=== PATIENT | male | born 1955 | race Caucasian/White ===

== ENCOUNTER 2020-06-29 02:25 | Emergency (ER) | payer OTHER ==
[~2020-06-29] VITALS: Ht 180.3 cm; Wt 108.9 kg
[~2020-06-29 02:25] MED LIST: ASA81BEC PO; ATIVAN1 MG PO; BACLOFEN20 MG PO; CARVEDILOL12.5 MG PO; CLONAZEPAM 0.50.5 M1 PO; CLONIDINE0.1 PO; CYMBALTA60 MG PO; DEPAKOTE500 MG; ENDOCET 10-3251 EACH PO; HALDOL 0.5 MG0.5 MG PO; IMDUR 30 MG TAB30 M1; IRON325; KEPPRA1000 MG; LASIX 40 MG TAB40 M2; LISINOPRIL10 MG PO; LISINOPRIL40 MG; LOPRESSOR100 MG PO; METALAZONE; MOTION RELIEF25 MG PO; MULTIVITAMINS1 EAC7; NABUMETONE 500500 M1; NICORETTE2 MG BC; NITROGLYCERIN0.4 MG; PHENERGAN 25 MG25 M1; PLAVIX 75 MG TA75 M1; PRAVACHOL40 MG PO; PROTONIX40 M2; SERTRALINE HCL50 MG PO; TAMSULOSIN HCL0.4 M1; TRAMADOL 50 MG50 MG PO; TRAZODONE 150150 M1 PO; ULTRAM50 MG; VALIUM2 MG PO; VITAMIN B-121000 MCG PO; VITAMIN D350000 UNIT PO; ZOLOFT50 MG
[2020-06-29] MEDS ORDERED: TYLENOL325 M1 PO (02:37)
[2020-06-29] MEDS ORDERED: BACLOFEN 10MG T10 MG PO (02:38)
[2020-06-29] MEDS ORDERED: VITAMIN B-121000 MC2 SUBLING (02:39)
[2020-06-29] MEDS ORDERED: FUROSEMIDE 40 M40 M1 PO (02:40)
[2020-06-29] MEDS ORDERED: OXYCODONE-APAP1 EAC4 PO (02:40)
[2020-06-29] MEDS ORDERED: CELEXA 20 MG TA20 MG PO (02:41)
[2020-06-29] MEDS ORDERED: HYDRALAZINE 2525 M1 PO (02:41)
[2020-06-29] MEDS ORDERED: LATUDA40 MG PO (02:42)
[2020-06-29] MEDS ORDERED: LEVETIRACETAM1000 MG PO (02:47)
[2020-06-29] MEDS ORDERED: AMLODIPINE BESY10 MG PO (02:48)
[2020-06-29] MEDS ORDERED: MELOXICAM7.5 MG PO (02:48)
[2020-06-29] MEDS ORDERED: MECLIZINE HCL12.5 MG PO (02:48)
[2020-06-29] MEDS ORDERED: PHENERGAN 25 MG25 M1 PO (02:49)
[2020-06-29 04:35] VITALS: BP 146/93
== END 2020-06-29 05:30 | disposition home or self-care (01) ==
LOC: ER 02:25
DX: I10 Essential (primary) hypertension (principal); E78.5 Hyperlipidemia, unspecified; F32.9 Major depressive disorder, single episode, unspecified; J44.9 Chronic obstructive pulmonary disease, unspecified; K21.9 Gastro-esophageal reflux disease without esophagitis; G43.909 Migraine, unspecified, not intractable, without status migrainosus; I48.91 Unspecified atrial fibrillation; Z79.899 Other long term (current) drug therapy; Z79.82 Long term (current) use of aspirin; Z88.6 Allergy status to analgesic agent; Z91.018 Allergy to other foods; Z88.8 Allergy status to other drugs, medicaments and biological substances

== ENCOUNTER 2020-08-01 03:01 | Inpatient (IN) | payer OTHER ==
[~2020-08-01] VITALS: Ht 180.3 cm; Wt 105.9 kg
[~2020-08-01 03:01] MED LIST changes: +AMLODIPINE BESY10 MG PO; +BACLOFEN 10MG T10 MG PO; +CELEXA 20 MG TA20 MG PO; +FUROSEMIDE 40 M40 M1 PO; +HYDRALAZINE 2525 M1 PO; +LATUDA40 MG PO; +LEVETIRACETAM1000 MG PO; +MECLIZINE HCL12.5 MG PO; +MELOXICAM7.5 MG PO; +OXYCODONE-APAP1 EAC4 PO; +PHENERGAN 25 MG25 M1 PO; +TYLENOL325 M1 PO; +VITAMIN B-121000 MC2 SUBLING
[2020-08-01 03:08] VITALS: BP 150/89
[2020-08-01 03:28] LABS: ABSOLUTE NEUTROPHILS 5.3 thou/uL (1.4-8.2); BASOPHILS 0.7 % (0.0-2.0); EOSINOPHILS 1.8 % (0.0-3.0); HEMATOCRIT 40.3 % (42.0-52.0); LYMPHOCYTES 19.7 % (24.0-44.0); MCH 31.5 pg (26.0-34.0); MCHC 34.7 g/dL (28.0-37.0); MCV 90.8 fL (80.0-100.0); MONOCYTES 15.9 % (1.0-8.0); PLATELET COUNT 226 thou/uL (150-400); POLYS 61.9 % (36.0-66.0); RBC 4.44 mil/uL (4.50-6.00); RDW 13.6 % (10.5-14.5); WBC 8.5 thou/uL (4.0-11.0)
[2020-08-01 03:36] LABS: ANION GAP 10 mmol/L (7-16); BUN 9 mg/dL (7-18); CALCIUM 8.9 mg/dL (8.5-10.1); CHLORIDE 94 mmol/L (98-107); CO2 27 mmol/L (21-32); CREATININE 0.8 mg/dL (0.7-1.3); GLUCOSE 107 mg/dL (74-106); POTASSIUM 3.1 mmol/L (3.5-5.1); SODIUM 131 mmol/L (136-145)
[2020-08-01 03:45] LABS: SGOT 18 U/L (15-37); SGPT 22 U/L (30-65); TOTAL BILIRUBIN 0.7 mg/dL (0.2-1.0); TOTAL PROTEIN 7.5 g/dL (6.4-8.2); TROPONIN-I <0.06 ng/mL (<0.06)
[2020-08-01 03:46] LABS: URINE BILIRUBIN NEGATIVE (Negative); URINE BLOOD 3+ (Negative); URINE CLARITY SL CLOUDY; URINE COLOR YELLOW; URINE GLUCOSE-RANDOM* NEGATIVE (Negative); URINE KETONES NEGATIVE (Negative); URINE NITRITE-REFLEX NEGATIVE (Negative); URINE PROTEIN (DIPSTICK) NEGATIVE (Negative); URINE SPECIFIC GRAVITY <= 1.005 (1.005-1.035); URINE UROBILINOGEN 0.2 E.U./dl (0.2-1.0)
[2020-08-01 03:47] LABS: URINE LEUKOCYTES-REFLEX 3+ (Negative)
[2020-08-01 03:56] LABS: BACTERIA-REFLEX >30 Many /HPF (None Seen); CASTS None Seen /LPF (None Seen); CRYSTALS None Seen /LPF (None Seen); MUCUS 0-3 Light strn/LPF (None Seen); SQUAMOUS None Seen /LPF (0-3); URINE RBC 3-10 Few /HPF (NONE SEEN); URINE WBC-REFLEX >25 Many /HPF (0-5)
[2020-08-01] MEDS ORDERED: FLOMAX0.4 MG PO (04:07)
[2020-08-01] MEDS ORDERED: MAG-OXIDE400 MG PO (04:08)
[2020-08-01] MEDS ORDERED: NITROSTAT0.4 M1 SUBLING (04:10)
[2020-08-01] MEDS ORDERED: K-DUR 20 MEQ T20 MEQ PO (04:12)
[2020-08-01 06:46] VITALS: BP 139/69
--- NOTE | 2020-08-01 07:06 | EKG ---
[address] [place] [address] ELECTROCARDIOGRAM REPORT Name: SAVANNA ROGERS [id number] Admission: 08/01/20 Attend Phys: Discharge: Date of : 53 Report #: [id number] [facility] ED Test Date: 2020-08-01 Test Time: 03:03:24 Pat Name: SAVANNA ROGERS Department: Room: Gender: Repairer Hairspring: carl : 1955 Requested By: Yolie Rico Order Number: [id number] MD: Randall Li Measurements Intervals [place] Rate: 75 P: 31 AK: 167 QRS: 13 QRSD: 102 T: 12 QT: 409 QTc: 457 Interpretive Statements Sinus rhythm Abnormal R-wave progression, early transition Compared to ECG 09/06/2014 13:31:46 No significant changes Electronically Signed On 08-01-2020 7:06:10 CDT by Randall Li [email or web address] <ELECTRONICALLY SIGNED> By: Randall Li MD, [facility] 08/01/20 0706 030 [id number] Randall Li MD, FACC /EPI
[2020-08-01 08:00] VITALS: BP 148/77
[2020-08-01 09:44] LABS: CHOLESTEROL 139 mg/dL (<200); HDL CHOLESTEROL 33 mg/dL (>40); LDL CHOLESTEROL 82 mg/dL (<100); TC:HDL 4.2 Ratio (Not establshd); TRIGLYCERIDE 124 mg/dL (<150); VLDL 25 mg/dL (<40)
--- NOTE | 2020-08-01 10:32 | 2DMMODE ---
[facility] [address] [place] [address] 2 D/M-MODE ECHOCARDIOGRAM Name: SAVANNA ROGERS Room #: 214-P ADM IN M.R.#: [id number] Admission: 08/01/20 Attend Phys: Kian Guerrero Discharge: Date of : 53 Report #: [id number] THIS REPORT FOR: cc: CIARA GROVES Physician not on staff Naresh Gonzales MD ~ APPROVED REPORT Study performed: 08/01/2020 09:48:54 EXAM: Comprehensive 2D, Doppler, and color-flow Echocardiogram Patient Location: Bedside Room #: 214 Status: routine BSA: 2.20 HR: 73 bpm BP: 148/77 mmHg Rhythm: NSR Other Information Study Quality: Good Indications Chest Pain Hx: CAD, PCI, Afib, HTN, HLP, COPD. 2D Dimensions RVDd: 31.94 mm IVSd: 13.21 (7-11mm) LVOT Diam: 24.42 (18-24mm) LVDd: 47.50 mm PWd: 11.43 (7-11mm) Ascending Ao: 32.51 (22-36mm) LVDs: 34.41 (25-40mm) Left Atrium: 43.06 (27-40mm) Aortic Root: 42.24 mm Volumes Left Atrial Volume (Systole) Single Plane 4CH: 63.76 mL Single Plane 2CH: 66.44 mL LA ESV Index: 31.00 mL/m2 Aortic Valve AoV Peak Wu.: 1.16 m/s AO Peak Gr.: 5.41 mmHg LVOT Max P.14 mmHg LVOT Max V: 1.02 m/s [facility] [address] [place] [address] 2 D/M-MODE ECHOCARDIOGRAM Name: SAVANNA ROGERS Room #: 214-P [facility] IN ..#: [id number] Admission: 08/01/20 Attend Phys: Kian Vizcarra Discharge: Date of : 53 Report #: [id number] Vmax: 4.10 cm2 Mitral Valve E/A Ratio: 0.9 MV Decel. Time: 194.58 ms MV E Max Wu.: 0.73 m/s MV A Wu.: 0.79 m/s MV PHT: 56.43 ms IVRT: 79.58 ms Pulmonary Valve PV Peak Wu.: 1.15 m/s PV Peak Gr.: 5.33 mmHg Pulmonary Vein P Vein S: 0.41 m/s P Vein A: 0.31 m/s P Vein D: 0.36 m/s P Vein A Dur.: 107.3 msec P Vein S/D Ratio: 1.14 Tricuspid Valve RAP Estimate: 5.00 mmHg Left Ventricle The left ventricle is normal size. Mild basal septal hypertrophy is present. Left ventricular systolic function is normal. LVEF is 50-55%. Mild diastolic dysfunction is present (impaired relaxation pattern). Right Ventricle The right ventricle is normal size. The right ventricular systolic function is normal. Atria The left atrium size is normal. The right atrium size is normal. Aortic Valve The aortic valve is normal in structure. No aortic regurgitation is present. There is no aortic valvular stenosis. Mitral Valve The mitral valve is normal in structure. Trace mitral regurgitation. No evidence of mitral valve stenosis. Tricuspid Valve The tricuspid valve is normal in structure. There is no tricuspid valve regurgitation noted. Unable to assess PA pressure. [facility] [place] [address] 2 D/M-MODE ECHOCARDIOGRAM Name: SUESAVANNA Ekaterina Room #: 214-P [facility] IN M.R.#: [id number] Admission: 08/01/20 Attend Phys: Kian Vizcarra Discharge: Date of : 53 Report #: [id number] Pulmonic Valve The pulmonary valve is normal in structure. There is no pulmonic valvular regurgitation. Great Vessels The aortic root is normal in size. The ascending aorta is normal in size. IVC is normal in size and collapses >50% with inspiration. Pericardium There is no pericardial effusion. <Conclusion> The left ventricle is normal size. Mild basal septal hypertrophy is present. LVEF is 50-55%. The aortic valve is normal in structure. The mitral valve is normal in structure. Trace mitral regurgitation. The tricuspid valve is normal in structure. There is no tricuspid valve regurgitation noted. Unable to assess PA pressure. The pulmonary valve is normal in structure. The aortic root is normal in size. There is no pericardial effusion. <ELECTRONICALLY SIGNED> By: Naresh Gonzales MD 08/01/201031 31 31 Naresh Gonzales MD /INF
--- NOTE | 2020-08-01 11:31 | NUR ---
RECEIVED PT FROM THE ED. ADMISSION COMPLETED. PT IS AXOX4, APPROPRIATE. VSS, AFEBRILE, SR ON THE MONITOR. DR WHITMORE CONSULTED. CARDIOLOGY CONSULTED. PT ECHO COMPLETED THIS AM. PT TO HAVE NUC STRESS TEST. PT HAS HX MUSCULAR DYSTROPHY. FALL PRECAUTIONS IN PLACE. POC IS TO CONTINUE TO MONITOR PT FOR CHEST PAIN. CASE MGMT CONSULTED FOR PT. NO CONCERNS AT THIS TIME.
[2020-08-01 12:36] VITALS: BP 147/91
[2020-08-01 19:40] VITALS: BP 154/73
[2020-08-02 03:58] VITALS: BP 134/64
--- NOTE | 2020-08-02 05:51 | NUR ---
PT RESTING ON AND OFF THRU THE NOC, VOIDING PER URINAL, PRN PAIN MEDS GIVEN NEEDED FOR GENERAL BACK AND LEG PAIN, C/O MUSCLE SPASMS 1 TIME ORDER FOR BACLOFEM GIVEN, NO C/O CP, VSS, BED RAILS PADDED, WILL CON'T TO MONITOR PER PPOC.
[2020-08-02 07:53] VITALS: BP 128/72
[2020-08-02 08:00] VITALS: BP 128/72
[2020-08-02 10:38] LABS: CALCIUM 8.8 mg/dL (8.5-10.1); CREATININE 0.9 mg/dL (0.7-1.3); POTASSIUM 3.7 mmol/L (3.5-5.1)
[2020-08-02 12:00] VITALS: BP 164/87
[2020-08-02 15:47] VITALS: BP 136/82
--- NOTE | 2020-08-02 16:30 | NUR ---
RECEIVED THE PATIENT CONSICOUS AND ORIENTED.ON ROOM AIR BREATHING SPONTANEOUSLY.NO COMPLAINT OF CHEST PAIN.NOT IN DISTRESS.VITALLY STABLE.ALL NEEDS ATTENDED.FALL PREVENTION MEASURES MAINTAINED.PLAN FOR STRESS TEST ON TUESDAY.
[2020-08-02 19:54] VITALS: BP 134/58
[2020-08-03] VITALS (7 sets, daily range): BP systolic 130–170; BP diastolic 60–81
--- NOTE | 2020-08-03 02:53 | NUR ---
RESTING IN BED THROUGHOUT NOC. PATIENT CALLS OUT FREQUENTLY. PAIN MEDICATION FOR GENERALIZED PAIN GIVEN NEEDED. REPOSITIONS SELF. REFUSES TO LET NURSE TURN BED ALARM ON. WORKING ON GOALS AND PLAN OF CARE FOR NOC. CONTINUE TO ASSES CLOSELY.
--- NOTE | 2020-08-03 18:35 | NUR ---
PT CARE ASSUMED AT 0700. ASSESSMENTS CHARTED. MEDICATIONS CHARTED. RAC IV. SINUS RHYTHM. URINAL/BSC. STAND-BY ASSIST. ACHS; HEART HEALTHY DIET. NM CARDIAC STRESS TEST 08/04/20. PT WEARS CLOTHES TO BED, INCLUDING SHOES. DR WHITMORE D/C'D INSULIN LISPRO AND ACHS.
[2020-08-04 04:00] VITALS: BP 135/68
--- NOTE | 2020-08-04 07:39 | NUR ---
PAIN FAIRLY CONTROLLED EVEN WITH BACLOFEN.PATIENT STILL PREFERS TO USE HIS STREET CLOTHES.REFUSED HIS SIDERAILS UP EVEN THOUGH FALL RISK IS EXPLAINED.STILL INSIST RIGHT SIDERAIL DOWN.MONITOR SHOWS SA.POC CONTINUED.
[2020-08-04 09:07] VITALS: BP 145/84
--- NOTE | 2020-08-04 11:43 | NUR ---
PT IS AXOX4, COOPERATIVE. VSS, AFEBRILE, SR ON MONITOR. PT C/O GENERALIZED PAIN. PT ALSO STATES HE NEEDS SOMETHING FOR ANXIETY. DR WHITMORE CONSULTED; CASE MGMT CONSULTED; CARDIOLOGY CONSULTED. PT TO HAVE NUC STRESS TEST THIS AM. PT HAS BEEN NPO SINCE MIDNIGHT. RX MEDS WITH SIPS OF WATER. FALL PRECAUTIONS IN PLACE. PT COMMUNICATES UNDERSTANDING. NO CONCERNS AT THIS TIME.
--- NOTE | 2020-08-04 16:34 | NUR ---
met with patient who admits from [facility] with chest pain. Patient wants to dc to another facility. He reports he does not like care at [facility]. Referrals to [facility], [facility] and [place]. All in process of reviewing. RN reports patient takes Latuda at facility and [facility] cannot give to patient here at hospital, unable to supply. Sp with YANCI at [facility] who reports can likely have restaurant delivery driver bring to hospital in am. Sp with Lara at [facility] earlier today and faxed clinical update. Updated patient not wanting to return. [facility] following.
[2020-08-04 16:50] VITALS: BP 127/67
--- NOTE | 2020-08-04 18:40 | NUR ---
RECEIVED THE PATIENT CONSCIOUS AND ORIENTED.ON ROOM AIR BREATHING SPONTANEOUSLY.NOT IN PAIN OR DISTRESS.HAD STRESS TEST TODAY BUT PATIENT REFUSED TO COMPLETE THE SECOND PART OF THE PROCEDURE, MACHINE CLOTHING REPLACER INFORMED ABOUT IT.ALL NEEDS ATTENDED.
[2020-08-04 20:30] VITALS: BP 178/76
[2020-08-05 04:32] VITALS: BP 135/63
--- NOTE | 2020-08-05 07:03 | NUR ---
PAIN FAIRLY CONTROLLED.DIDN'T SLEEP MUCH.PATIENT HAS BEEN ASKING FOR SNACKS ALL NIGHT.PATIENT FEELS TIRED THIS MORNING.REPLACED IV ACCESS LAST NIGHT BUT PT PULLED THE NEW ONE THIS MORNING.STILL REFUSES TO PLACE RIGHT SIDERAIL UP.PATIENT STILL USE HIS STREET CLOTHES.MONITOR SHOWS SR.POC CONTINUED.
[2020-08-05 09:05] VITALS: BP 151/86
--- NOTE | 2020-08-05 11:30 | NUR ---
PT RESTING COMFORTABLY IN BED. ABLE TO DO ALL ADL'S INDEPENDENTLY. PT IS RUDE WITH STAFF AND DOES NOT APPEAR TO WANT TO TAKE PART IN CARE. REFUSED PT AND OT TODAY. PT HAS BEEN THOUROUGHLY UPDATED AND EDUCATED ON CONDITION AND POC. PT SLOWLY PROGRESSING TOWARDS POC.
[2020-08-05 12:44] VITALS: BP 135/75
[2020-08-05 16:00] VITALS: BP 124/71
--- NOTE | 2020-08-05 17:01 | NUR ---
sp with patient referral packet to [facility] at patients request. Sp with Ashlee in admissions who reviewed and accepting of patient. Sp with [facility] who plans to meet with patient in am to review and sp with patient. Patient wanting to sp with [facility] in am. He reports he will decide tomorrow on facility. Sp with DON at [facility] and updated. he reports if patient is not returning to their facility he cannot bring medication per their legal administrator. [facility] plan for dc [place].
--- NOTE | 2020-08-05 18:00 | NUR ---
PT WITH VERY ODD BEHAVIOR TODAY. REMAINS IN STREET CLOTHS. LIES CROSS WAYS IN BED. REFUSES TO ALLOW THIS RN TO PUT BED ALARM ON. PT INSTRUCTED THAT HE IS A VERY HIGH FALL RISK WITH HIS DIZZINESS AND HEADACHE. PT VERBALIZED UNDERSTANDING AND STATES HE IS NOT GOING TO FALL. PAGING DR. ABEL FOR MORE PAIN MEDS FOR PT HEADACHE. ZOFRAN HELPING NAUSEA. PT ATE 100% OF MEAL. PT MOVING TOWARDS GOALS IN SOME RESPECTS BUT NEEDS TO CLEAR UP THE HEADACHE AND NAUSEA BEFORE MOVING FORWARD. WILL CONTINUE TO MONITOR.
[2020-08-05 19:40] VITALS: BP 141/68
--- NOTE | 2020-08-05 21:29 | NUR ---
PT NOT COOPERATIVE, REFUSING TO ANSWER ORIENTATION QUESTIONS, "I AM TRYING TO TAKE A NAP, JUST THROW MY PILLS IN MY MOUTH." THIS RN STATED THAT PILLS WILL NOT BE GIVEN TO A SLEEPING PATIENT AND WILL RETURN AT A LATER TIME. PT REQUESTING SNACKS AROUND 2100, RETURNED WILL PILLS AND FINISHED ASSESSMENT AND GAVE PILLS AT THAT TIME. PT CONTINUES TO BE GRUFF AND DEMANDING BUT WAS ABLE TO INTERACT WITH SOME COMPLIANCE WITH THIS RN. REFUSES TO ALLOW BED ALARM ON, EDUCATED ON SAFETY PROCEDURES, PT STATES UNDERSTANDING BUT CONTINUES TO REFUSE BED ALARM. ORIENTED X4.
--- NOTE | 2020-08-06 04:28 | NUR ---
PT IS IRRITABLE AND VERY UNPLEASANT TOWARD STAFF IF HE IS DENIED. REFUSED TO ALLOW TECH TO GET 0400 VS AND CURSED AT HER WHEN SHE TOLD HIM HE WAS NOT ALLOWED TO GO TO THE VENDING MACHINE FOR A CANDY BAR. LIMITS AND BOUNDARIES SET BY THIS RN. 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 GAVE PT CHG WIPES WITH NEW BRIEFS, PT REFUSED TO ALLOW RN TO ASSIST HIM.
[2020-08-06 04:41] VITALS: BP 127/76
[2020-08-06 07:59] VITALS: BP 151/66
[2020-08-06 11:19] VITALS: BP 150/59
--- NOTE | 2020-08-06 11:25 | NUR ---
FAXED CLINICAL UPDATES TO [facility]. WILL CONFIRM THEY RECEIVED. [facility] P [phone]; FAX [phone]
[2020-08-06] MEDS ORDERED: FISH OIL 1,0001 EAC9 PO (14:27)
[2020-08-06] MEDS ORDERED: COMPAZINE10 M2 PO (14:27)
[2020-08-06] MEDS ORDERED: VITAMIN C500 M1 PO (14:27)
[2020-08-06] MEDS ORDERED: PERCOCET 5-3251 EACH PO (14:27)
[2020-08-06] MEDS ORDERED: ZINC50 MG PO (14:27)
[2020-08-06] MEDS ORDERED: CARVEDILOL12.5 MG PO (14:27)
[2020-08-06] MEDS ORDERED: HOME MEDICATION PO (14:30)
[2020-08-06] MEDS ORDERED: LATUDA40 MG PO (14:30)
--- NOTE | 2020-08-06 16:37 | NUR ---
Met with patient referrals to [facility] and [facility]. [facility] met with patient today. Reviewed [facility] skilled and medicaid ltc. THey do not have a terminal press operator care bed avail at this time but plan in future. Nyla reports if unable to have ltc medicaid bed avail post skilled care then patient would need SW to seek ltc for patient. Patient inially reluctant for skilled care but after speaking with phys agreeable. Patient chose [facility]. [place] Faxed pertinent information dc orders. Stretcher arranged via [email or web address] for [phone] Patient in agreement with plan.
--- NOTE | 2020-08-06 17:21 | NUR ---
offered to call paster and family but patient reports he has already spoken to them to alert of discharge
[2020-08-06 17:26] VITALS: BP 150/59
== END 2020-08-06 17:44 | DRG 303 ==
LOC: ER 03:01 → 2N 09:24
PROVIDERS: Emergency Medicine; Nurse Practitioner; ADMIT Hospitalist; ATTEND Hospitalist
DX: I25.110 Atherosclerotic heart disease of native coronary artery with unstable angina pectoris (principal); E44.0 Moderate protein-calorie malnutrition; E87.1 Hypo-osmolality and hyponatremia; N30.01 Acute cystitis with hematuria; I10 Essential (primary) hypertension; E78.5 Hyperlipidemia, unspecified; F32.9 Major depressive disorder, single episode, unspecified; J44.9 Chronic obstructive pulmonary disease, unspecified; K21.9 Gastro-esophageal reflux disease without esophagitis; E87.6 Hypokalemia; G47.00 Insomnia, unspecified; E11.9 Type 2 diabetes mellitus without complications; F41.9 Anxiety disorder, unspecified; E66.9 Obesity, unspecified; G71.11 Myotonic muscular dystrophy; Z20.822 Contact with and (suspected) exposure to COVID-19; G40.409 Other generalized epilepsy and epileptic syndromes, not intractable, without status epilepticus; I48.0 Paroxysmal atrial fibrillation; G43.809 Other migraine, not intractable, without status migrainosus; Z86.718 Personal history of other venous thrombosis and embolism; Z79.01 Long term (current) use of anticoagulants; Z95.5 Presence of coronary angioplasty implant and graft; Z88.6 Allergy status to analgesic agent; Z88.8 Allergy status to other drugs, medicaments and biological substances; Z79.891 Long term (current) use of opiate analgesic; Z68.32 Body mass index [BMI] 32.0-32.9, adult; Z79.82 Long term (current) use of aspirin; Z79.899 Other long term (current) drug therapy; G89.4 Chronic pain syndrome
CPT/HCPCS: 10081; 10797